=== PATIENT | male | born 1945 | race Caucasian/White ===

== ENCOUNTER → 2025-04-03 | Day surgery (SDC) | payer MEDICARE, BC ==
[~2025-04-03] MED LIST: ALPRAZolam 0.25 MG TAB PO PRN; RX INFO: IV CONTRAST WAS GIVEN 1 EACH MISC MISCELLANE PRN; SODIUM CHLORIDE 0.9% 1,000 ML IV SCH
[2025-04-03] MEDS: IV FLUID CONTINUATION 1,000 ML IV ONE (06:02)
[2025-04-03 06:11] VITALS: TEMP 97
[2025-04-03] MEDS: SODIUM CHLORIDE 0.9% 1,000 ML in EMPTY BAG 1 BAG IV SCH (06:12)
[2025-04-03] MEDS: ASPIRIN 325 MG TAB PO ONE (06:13)
[2025-04-03] MEDS: ALPRAZolam 0.5 MG TAB PO PRN (06:18)
[2025-04-03 06:21] LABS: Basophils # (A) 0.07 10*3/uL (0.00-0.10); Eosinophils # (A) 0.42 10*3/uL (0.04-0.35); Eosinophils % (A) 6.3 %; HCT 39.7 % (39.6-50.0); HGB 13.8 g/dL (13.0-17.0); Lymphocytes # (A) 1.66 10*3/uL (0.90-5.00); Lymphocytes % (A) 24.9 %; MCH 30.5 pg (27.0-32.0); MCHC 34.8 g/dL (32.0-37.0); MCV 87.8 fL (80.0-97.0); Mean Platelet Volume 10.4 fL (9.5-12.2); Monocytes # (A) 0.55 10*3/uL (0.20-1.00); Monocytes % (A) 8.2 %; Neutrophils # (A) 3.97 10*3/uL (1.80-7.70); Neutrophils % (A) 59.5 %; Platelet Count 191 10*3/uL (140-440); RBC 4.52 10*6/uL (4.40-5.60); RDW 13.4 % (11.5-14.5); WBC 6.68 10*3/uL (4.50-10.00)
[2025-04-03 06:36] LABS: African American GFR (CKD) 48 (>60 ml/min/1.73 sqM); Anion Gap 11 mmol/L; Blood Urea Nitrogen 32 mg/dL (9-20); Calcium 9.9 mg/dL (8.4-10.2); Carbon Dioxide 23 mmol/L (22-30); Chloride 103 mmol/L (98-107); Glucose 122 mg/dL (74-99); Non-African American GFR(CKD) 41 (>60 ml/min/1.73 sqM); Potassium 4.4 mmol/L (3.5-5.1); Sodium 137 mmol/L (137-145)
[2025-04-03] MEDS: fentaNYL (PF) 50 MCG/ML 2 ML AMP IVP ONE ×2 (07:23)
[2025-04-03] MEDS: MIDAZOLAM 2 MG/2 ML VIAL IVP ONE (07:23)
[2025-04-03] MEDS: LIDOCAINE 1% INJ 10MG/ML (20 ML MDV) SQ ONE (07:25)
[2025-04-03] MEDS: VERAPAMIL SYRINGE (5 MG/10 ML) INTRAARTER ONE (07:27)
[2025-04-03] MEDS: HEPARIN SODIUM,PORCINE (1 ML) 2,500 UNIT in SODIUM CHLORIDE 0.9% 250 ML IRRIGATION PRN (07:31)
[2025-04-03] MEDS: HEPARIN SODIUM,PORCINE 10,000 UNIT in SODIUM CHLORIDE 0.9% 1,000 ML IRRIGATION PRN (07:31)
[2025-04-03] MEDS: HEPARIN SODIUM 1,000 UN/ML (10ML VL) IV ONE (07:38)
[2025-04-03] MEDS: IOPAMIDOL-370 100ML BTL INJ ONE (08:03)
[2025-04-03 09:27] VITALS: BP 142/82; PULSE 64; RESP 14
--- NOTE | 2025-04-03 16:37 | CC ---
CARDIAC CATHETERIZATION REPORT INDICATION: Unstable angina. HISTORY OF PRESENT ILLNESS: This is an 79-year-old gentleman with history of hypertension, dyslipidemia, and prior history of DVT, who presented to us with chest pain and underwent a stress test that did not reveal any ischemia, but subsequently has had recurrent episodes of chest discomfort that were concerning for unstable angina. He has mild dementia and is fairly functional otherwise. The patient was advised to undergo cardiac catheterization for definitive diagnosis. He had been explained of risks, benefits, and alternatives, understood and accepted. PROCEDURE NOTE: After obtaining informed consent, left heart catheterization and coronary angiogram were performed via the right radial artery using standard Jus catheters. The patient tolerated the procedure well without any obvious immediate complications. A TR band will be used for hemostasis at the end of the procedure. Right radial artery access was obtained using Seldinger technique, 6-Tunisian sheath was placed. Catheters and wires were floated into the ascending aorta under fluoroscopic guidance. The subclavian was very tortuous. We had to use a Glidewire to traverse the catheters into the ascending aorta where I exchanged the catheters. The patient received verapamil and heparin per protocol. I left the wire in the aorta for the finisher screwdown to exchange over given how difficult it was to manipulate the catheter into the ascending aorta. Total sedation time was 31 minutes. FINDINGS: 1. Hemodynamics: Left ventricular end-diastolic pressure is 8 to 10 mm. There is no significant gradient across the aortic valve. 2. Left ventriculogram was not performed. 3. Angiographic data: a.Right coronary artery: Large dominant vessel. It is free of significant stenosis. b.Left main coronary artery: Appears calcified, but is free of significant stenosis. Divides into left anterior descending coronary artery and circumflex coronary artery. c.Circumflex coronary artery: Shows mild nonobstructive disease. There is a large caliber diagonal branch that has a 95% stenosis in the ostial portion. CONCLUSION: Severe 1 vessel coronary artery disease as described above. PLAN: I reviewed angiographic data with Dr. Roland, the on-call finisher screwdown. Given the ostial nature of the diagonal disease and the concern for putting the LAD in jeopardy, we decided to treat him with medical therapy. MMODL / IJN: [id number] /
== END ==
LOC: CATHCVL 05:36
PROVIDERS: ATTEND Internal Medicine Cardiovascular Disease
DX: I25.110 Atherosclerotic heart disease of native coronary artery with unstable angina pectoris (principal); I10 Essential (primary) hypertension; E78.5 Hyperlipidemia, unspecified; F03.A0 Unspecified dementia, mild, without behavioral disturbance, psychotic disturbance, mood disturbance, and anxiety; Z86.718 Personal history of other venous thrombosis and embolism; Z79.01 Long term (current) use of anticoagulants; Z79.899 Other long term (current) drug therapy
CPT/HCPCS: 93458; 80048; 85025; 99152; 99153; C1894; J2250; J1644 ×3; J2003; J3010; Q9967